=== PATIENT | male | born 1975 | race Two or more races ===

== ENCOUNTER 2020-11-17 11:43 | Emergency (ER) | payer OTHER ==
[~2020-11-17] VITALS: Ht 180.3 cm; Wt 931.2 kg
[~2020-11-17 11:43] MED LIST: IBUPROFEN800 MG PO
[2020-11-17] MEDS ORDERED: ZESTRIL5 MG PO (12:22)
[2020-11-17] MEDS ORDERED: AZITHROMYCIN500 MG PO (15:56)
[2020-11-17] MEDS ORDERED: MUCINEX DM ER1 EAC1 PO (15:56)
[2020-11-17] MEDS ORDERED: MEDROLPACK PO (15:56)
== END 2020-11-17 16:07 | disposition home or self-care (01) ==
LOC: ER 11:43
DX: R04.2 Hemoptysis (principal); Z20.822 Contact with and (suspected) exposure to COVID-19

== ENCOUNTER → 2023-02-13 07:34 | Outpatient (CLI) | payer OTHER ==
[~2023-02-13 07:34] MED LIST changes: +AZITHROMYCIN500 MG PO; +MEDROLPACK PO; +MUCINEX DM ER1 EAC1 PO; +ZESTRIL5 MG PO
== END | disposition home or self-care (01) ==
LOC: NUCLEAR 07:00
DX: C61 Malignant neoplasm of prostate (principal); E66.9 Obesity, unspecified